=== PATIENT | female | born 1985 | race Caucasian/White ===

== ENCOUNTER → 2016-07-21 | Outpatient (CLI) | payer OTHER ==
[~2016-07-21] MED LIST: ACET-1256 PO; CLX/20 PO; LMC25 PO
== END ==
LOC: C.LAB 15:36
DX: Z02.83 Encounter for blood-alcohol and blood-drug test (principal)

== ENCOUNTER 2017-07-01 20:34 | Inpatient (IN) | payer OTHER ==
[~2017-07-01] VITALS: Ht 160 cm; Wt 51.7 kg
[2017-07-01] MEDS ORDERED: SODIUM CHLORIDE 0.9% 1000ML 1,000 ML IV ONE (21:30)
[2017-07-01] MEDS ORDERED: SODIUM CHLORIDE 0.9% 1000ML 1,000 ML IV STA (21:30)
[2017-07-01] MEDS ORDERED: ONDANSETRON INJ 2 MG/ML 2 ML VIAL IV STA ×2 (21:30→22:40)
[2017-07-01 21:50] LABS: BASO % 0.5 %; BASO ABS # 0.06 K/uL (0-0.2); EOS % 2.6 %; EOS ABS # 0.32 K/uL (0-0.5); HEMATOCRIT 46.3 % (37-47); HEMOGLOBIN 16.3 g/dL (12.0-16.0); IG# 0.04 K/uL (0.00-0.02); LYMPH % 19.2 %; LYMPH ABS # 2.38 K/uL (1.2-3.4); MEAN CELL VOLUME 93.9 fL (80-100); MEAN CORPUSCULAR HEMOGLOBIN 33.1 pg (25-34); MEAN CORPUSCULAR HGB CONC 35.2 g/dl (32-36); MEAN PLATELET VOLUME 10.2 fL (7.4-10.4); MONO % 6.7 %; MONO ABS # 0.83 K/uL (0.11-0.59); NEUT % 70.7 %; NEUT ABS # 8.76 K/uL (1.4-6.5); PLATELET COUNT 191 K/uL (130-400); RED CELL DISTRIBUTION WIDTH CV 13.7 % (11.5-14.5); RED CELL DISTRIBUTION WIDTH SD 47.1 fL (36.4-46.3); WHITE BLOOD COUNT 12.39 K/uL (4.8-10.8)
[2017-07-01 22:08] LABS: ALBUMIN 4.4 gm/dl (3.4-5.0); CALCIUM 9.5 mg/dl (8.5-10.1); CREATININE 0.75 mg/dl (0.60-1.20); POTASSIUM 3.9 mmol/L (3.5-5.1)
[2017-07-01] MEDS ORDERED: OPTIRAY 320 IV PRN (23:45)
--- NOTE | 2017-07-02 00:20 | EMERGENCY ROOM VISIT NOTE ---
History Report prepared by Minnie: Naye Wei Under the Supervision of: Dr. William Camargo M.D. First contact with patient: 21:23 Chief Complaint: NAUSEA Stated Complaint: POSSIBLE UTI, NAUSEA, PAIN, WEAK Nursing Triage Summary: Pt wheeled into triage. Pt c/o nausea and vomiting. Started this morning, on/ off the past couple days. Pt states she hasn't been able to pee well, feels like she may have a uti. History of Present Illness The patient is a 32 year old female who presents to the Emergency Room with complaints of worsening nausea starting a few days ago. The patient's friend states that the patient thinks she has a UTI since this is what she feels like when she has a UTI. She states that the patient has this a few times a year. The patient's friend complains of the patient having back pain, weakness, abdominal pain, chills, not being able to drink, and diarrhea. The patient denies no new medications, stopping any medications, chance of and fevers. She notes that she has a dental abscess that she thinks is getting worse. Source of History: patient, friend Onset: a few days ago Position: other (global) Quality: other (nausea) Timing: worsening Associated Symptoms: + chills, + abdominal pain, + back pain, + diarrhea, + weakness, No fevers Note: The patient complains of not being able to drink and worsening dental abscess. Review of Systems See HPI for pertinent positives & negatives. A total of 10 systems reviewed and were otherwise negative. Past Medical & Surgical Medical Problems: (1) Anxiety (2) Bipolar disorder (3) Depression (4) Odontogenic infection of jaw (5) Tobacco use disorder Surgical Problems: (1) History of bilateral tubal ligation (2) Hx of cholecystectomy (3) S/P section (4) S/P debridement Old medical records were reviewed. Nurse's notes were reviewed and I agree with. Family History FH: cancer GRANDFATHER GREAT AUNT (colon CA) FH: diabetes mellitus FH: gallbladder disease FH: heart disease FH: hypertension FH: kidney disease FH: lung disease FH: seizures Kidney stones Social History Smoking Status: Never Smoker Alcohol Use: occasionally Drug Use: none Housing Status: lives with family Current/Historical Medications No Active Prescriptions or Reported Meds Allergies Coded Allergies: No Known Allergies (Verified , 09/09/15) Physical Exam Vital Signs Date Time Temp Pulse Resp B/P (MAP) Pulse Ox O2 Delivery O2 Flow Rate FiO2 07/02/17 00:58 36.4 07/02/17 00:00 77 16 118/89 98 Room Air 07/01/17 23:21 77 14 114/70 98 Room Air 07/01/17 21:53 74 13 112/77 96 Room Air 07/01/17 20:37 36.3 89 18 124/90 96 Room Air Physical Exam General: Uncomfortable appearing young female complaining of nausea and lower abdominal pain. HEENT: Normal cephalic atraumatic. Pupils are equal round and reactive to light. Extraocular movements are intact. Oropharynx is pink with moist mucous membranes. No swelling of the mouth lips or tongue. Neck: Supple with a midline trachea. No meningeal signs or stiffness, no JVD or bruits. No Stridor. Chest: Clear to auscultation bilaterally. No wheezes or rhonchi. No increased work of breathing. Heart: regular rate and rhythm. Abdomen: Mildly tender in the lower abdomen. Soft, nondistended without rebound guarding or rigidity. Extremities: No cyanosis clubbing or edema. No calf tenderness or assymetry Spine/Back. Non tender to palpation. No CVA tenderness Skin: Good turgor without rashes. Neurologic exam: Cranial nerves two through 12 are intact. Motor and sensation are intact and symmetrical throughout. Medical Decision & Procedures ER Provider Diagnostic Interpretation: Radiology results as stated below per my review and radiologist interpretation: CT ABDOMEN & PELVIS With Contrast: Impression: The appendix measures upper limits normal at 6-7 mm with mild enhancement of its wall. No significant adjacent stranding. Correlate clinically to exclude acute appendicitis. Additional findings: Lower thorax is unremarkable. Mild periportal edema which may be secondary to IV hydration. Gallbladder is surgically absent. Spleen, pancreas and adrenal glands are unremarkable. Uterus and adnexa are unremarkable. Bowel is unremarkable. No acute osseous abnormality. Radiologist: Lazarus Kaur MD Study ready at 00:29 and initial results transmitted at 00:48. Laboratory Results 07/01/17 21:30 Red Blood Count 4.93, Mean Corpuscular Volume 93.9, Mean Corpuscular Hemoglobin 33.1, Mean Corpuscular Hemoglobin Concent 35.2, Mean Platelet Volume 10.2, Neutrophils (%) (Auto) 70.7, Lymphocytes (%) (Auto) 19.2, Monocytes (%) (Auto) 6.7, Eosinophils (%) (Auto) 2.6, Basophils (%) (Auto) 0.5, Neutrophils # (Auto) 8.76, Lymphocytes # (Auto) 2.38, Monocytes # (Auto) 0.83, Eosinophils # (Auto) 0.32, Basophils # (Auto) 0.06 07/01/17 21:30 Test 07/01/17 21:30 07/01/17 23:00 White Blood Count 12.39 K/uL (4.8-10.8) Red Blood Count 4.93 M/uL (4.2-5.4) Hemoglobin 16.3 g/dL (12.0-16.0) Hematocrit 46.3 % (37-47) Mean Corpuscular Volume 93.9 fL (80-100) Mean Corpuscular Hemoglobin 33.1 pg (25-34) Mean Corpuscular Hemoglobin Concent 35.2 g/dl (32-36) Platelet Count 191 K/uL (130-400) Mean Platelet Volume 10.2 fL (7.4-10.4) Neutrophils (%) (Auto) 70.7 % Lymphocytes (%) (Auto) 19.2 % Monocytes (%) (Auto) 6.7 % Eosinophils (%) (Auto) 2.6 % Basophils (%) (Auto) 0.5 % Neutrophils # (Auto) 8.76 K/uL (1.4-6.5) Lymphocytes # (Auto) 2.38 K/uL (1.2-3.4) Monocytes # (Auto) 0.83 K/uL (0.11-0.59) Eosinophils # (Auto) 0.32 K/uL (0-0.5) Basophils # (Auto) 0.06 K/uL (0-0.2) RDW Standard Deviation 47.1 fL (36.4-46.3) RDW Coefficient of Variation 13.7 % (11.5-14.5) Immature Granulocyte % (Auto) 0.3 % Immature Granulocyte # (Auto) 0.04 K/uL (0.00-0.02) Anion Gap 6.0 mmol/L (3-11) Est Creatinine Clear Calc Drug Dose 85.9 ml/min Estimated GFR () 121.4 Estimated GFR (Non- 104.7 BUN/Creatinine Ratio 15.3 (10-20) Calcium Level 9.5 mg/dl (8.5-10.1) Total Bilirubin 0.9 mg/dl (0.2-1) Direct Bilirubin 0.2 mg/dl (0-0.2) Aspartate Amino Transf (AST/SGOT) 15 U/L (15-37) Alanine Aminotransferase (ALT/SGPT) 19 U/L (12-78) Alkaline Phosphatase 58 U/L (45-117) Total Protein 8.0 gm/dl (6.4-8.2) Albumin 4.4 gm/dl (3.4-5.0) Lipase 148 U/L (73-393) Human Chorionic Gonadotropin, Qual NEG (NEG) Urine Color DK YELLOW Urine Appearance CLEAR (CLEAR) Urine pH 6.5 (4.5-7.5) Urine Specific [place] 1.030 (1.000-1.030) Urine Protein NEG (NEG) Urine Glucose (UA) NEG (NEG) Urine Ketones TRACE (NEG) Urine Occult Blood NEG (NEG) Urine Nitrite NEG (NEG) Urine Bilirubin NEG (NEG) Urine Urobilinogen NEG (NEG) Urine Leukocyte Esterase NEG (NEG) Laboratory studies as stated above per my review. Medications Administered Medications (Trade) Dose Ordered Sig/Jani Route Start Time Stop Time Status Last Admin Dose Admin Sodium Chloride 1,000 ml @ 999 mls/hr Q1H1M STAT IV 07/01/17 21:30 07/01/17 22:30 DC 07/01/17 21:49 999 MLS/HR Sodium Chloride 1,000 ml @ 200 mls/hr Q5H ONCE IV 07/01/17 21:30 07/02/17 02:29 07/01/17 23:22 200 MLS/HR Ondansetron HCl (Zofran Inj) 4 mg NOW STAT IV 07/01/17 21:30 07/01/17 21:31 DC 07/01/17 21:49 4 MG Ondansetron HCl (Zofran Inj) 4 mg NOW STAT IV 07/01/17 22:40 07/01/17 22:41 DC 07/01/17 23:22 4 MG Ondansetron HCl (Zofran Inj) 4 mg NOW STAT IV 07/02/17 00:42 07/02/17 00:43 DC 07/02/17 00:56 4 MG ED Course 2123: Past medical records reviewed. The patient was evaluated in room B12B, and a complete history and physical examination were performed. 0: Ordered Zofran Inj 4 mg IV, NSS 1000 ml @ 200 mls/hr IV, NSS 1000 ml @ 999 mls/hr IV. 5: I reevaluated the patient and she is still nauseated. 0: Ordered Zofran Inj 4 mg IV. 2312: I reevaluated the patient and she is still in pain. We are going to do a CT of her abdomen. 0004: I reevaluated the patient and she is still complaining of nausea. 0042: Ordered Zofran Inj 4 mg IV. 0102: I reevaluated the patient and she is still nauseous. She no longer has abdominal pain. 0139: I discussed the patient's case with Dr. Michelle Ornelas. He would like general surgery consulted. 0149: I discussed the patient's case with Dr. Thorne- General Surgeon. He states to admit her to medicine and he will see her in the morning. 0153: Discussed the patient's case with Dr. Michelle Ornelas. The patient will be evaluated for further management. 0159: I reevaluated the patient and updated her on the plan. She is still nauseous. Medical Decision Differential diagnoses include nausea, dehydration, infection, sepsis, medication side effect or withdrawal, electrolyte abnormality, metabolic abnormality. This patient comes in as described above she is complaining of nausea and may have some lower abdominal pain. She is complaining mostly of nausea. IV access established was hydrated with IV normal saline, she was given IV Zofran. she received additional IV Zofran. Urinalysis does not suggest UTI. Her white count is mildly elevated. She has no acute electrolyte or metabolic abnormalities. She denies any headache. she is afebrile here. she has had no chest pain or shortness of breath. She has no meningeal signs or stiffness. She may have some abdominal pain. She feels generally achy. Her white count is mildly elevated although she is afebrile here. She has no acute electrolyte or metabolic abnormalities. Urinalysis does not suggest UTI. She has no new medications denies narcotic use or withdrawal. CAT scan was obtained and shows no acute findings. The appendix is upper limits of normal without any stranding and there is mild enhancement of its wall. Clinically I do not think is likely appendicitis however it is still possible. I do think she needs to be admitted for treatment of her nausea and observation. I did discuss case with Dr. Thorne feels she can be observed and will see her in the morning. Dr. Tsai was consulted and he is going to see her in the ER for observation and further evaluation. Medication Reconcilliation Current Medication List: was personally reviewed by me Blood Pressure Screening Patient's blood pressure: Normal blood pressure Will be further monitored by the hospitalist. Consults Time Called: 013 Consulting Physician: Dr. Michelle Andersen Hospitalist Returned Call: 0139 I discussed the patient's case with Dr. Michelle Ornelas. He would like general surgery consulted. Additional Consults: Time Called: 0141 Consulted Physician: Dr. Thorne- General Surgeon Returned Call: 0149 Additional Comments: I discussed the patient's case with Dr. Thorne- General Surgeon. He states to admit her to medicine and he will see her in the morning Time Called: 0152 Consulted Physician: Dr. Michelle Andersen Hospitalist Returned Call: 0153 Additional Comments: Discussed the patient's case with Dr. Michelle Andersen Hospitalist. The patient will be evaluated for further management. Impression Primary Impression: Nausea Scribe Attestation The scribe's documentation has been prepared under my direction and personally reviewed by me in its entirety. I confirm that the note above accurately reflects all work, treatment, procedures, and medical decision making performed by me. Departure Information Dispostion Being Evaluated By Hospitalist Prescriptions No Active Prescriptions or Reported Meds Referrals No Doctor, Assigned (PCP) Patient Instructions My [facility]
[2017-07-02] MEDS ORDERED: ONDANSETRON INJ 2 MG/ML 2 ML VIAL IV STA (00:42)
[2017-07-02] MEDS ORDERED: ONDANSETRON INJ 2 MG/ML 2 ML VIAL IV PRN (02:30)
[2017-07-02] MEDS ORDERED: PIPERACILL/TAZOBAC IV 4.5 GM in DEXTROSE 5% 100ML 100 ML IV ONE (02:33)
[2017-07-02] MEDS ORDERED: PIPERACILLIN/TAZOBACTAM 4.5 GM/100ML D5W IV STA (02:38)
[2017-07-02] MEDS ORDERED: PIPERACILL/TAZOBAC IV 4.5 GM in DEXTROSE 5% 100ML 100 ML IV SCH (02:45)
[2017-07-02] MEDS ORDERED: PIPERACILL/TAZOBAC CONSULT ACTIVE PRN ×2 (02:45)
--- NOTE | 2017-07-02 03:05 | HISTORY & PHYSICAL EXAMINATION ---
DATE OF ADMISSION: 07/01/2017 PRIMARY CARE PHYSICIAN: Dr. Cardoso. CHIEF COMPLAINT: Abdominal discomfort, nausea, vomiting since yesterday. HISTORY OF PRESENT COMPLAINT: She is a 32-year-old female with significant past medical history of bipolar affective disorder and generalized anxiety disorder and tobacco use disorder, apparently has been complaining of generalized weakness associated with nausea and recurrent vomiting and also diarrhea since yesterday. She complains to have chills and some abdominal discomfort but no chest pain, shortness of breath, palpitation, and does not have any problem with urine and does not have any headache, any blurred vision, any pain in the joints or any other symptoms. In the Emergency Room, she was still having pain and her labs showed white count of 12,000 and CAT scan of the abdomen did show some swelling involving the appendix. The surgery on-call was consulted by the ER physician and was advised to admit under medical service and she seems to be not a candidate for surgery tonight, so they will see her tomorrow morning. PAST MEDICAL HISTORY: Significant for tobacco use disorder, bipolar affective disorder, generalized anxiety disorder. PAST SURGICAL HISTORY: delivery and cholecystectomy. FAMILY HISTORY: Sister has heart disorder and maternal great aunt had colon cancer. SOCIAL HISTORY: She is . She is accompanied by her girlfriend. She smokes about 1.5 packs per day. She tried to quit in 2006. No alcohol use. She has been reasonably active. REVIEW OF SYSTEMS: Total systemic review unremarkable except those mentioned in history of present complaint. ALLERGIES: NKDA. MEDICATIONS: She has not been taking any medications as an outpatient. PHYSICAL EXAMINATION: GENERAL: On examination in the Emergency Room, she looked pale. She was in pain and nauseous, no apparent distress other than minimal pain. VITAL SIGNS: Temperature 36.3, pulse of 77, blood pressure 118/89, saturation 98% on room air. HEENT: Unremarkable. NECK: Supple, no JVD, no bruit. CHEST: Clear to auscultate bilaterally. HEART: S1, S2 regular. ABDOMEN: Soft but tender all over, mostly in the right lower quadrant, difficult palpation because of noncooperation. Could not elicit any rebound tenderness and/or guarding. Bowel sounds present. EXTREMITIES: Negative. CENTRAL NERVOUS SYSTEM: She is alert, awake, oriented x3. LABORATORY DATA: Noted today white count 12.39, H&H 16.3/46.3, platelet was 191, polys of 8.76. Sodium 139, potassium 3.9, chloride 106, carbon dioxide 28, BUN 11, creatinine 0.75, random glucose 107. LFTs unremarkable. Lipase 148. HCG negative. UA examination unremarkable. CT of the abdomen reported as some swelling around the appendix. IMPRESSION AND PLAN: 1. Ongoing nausea, vomiting, diarrhea. The patient was admitted to medical floor. She will be given adequate IV fluid. She may have acute gastroenteritis. She will be given symptomatic medications and stool will be sent for C. diff colitis and also culture. 2. Abdominal pain with nausea, vomiting, diarrhea. CT scan shows some swelling involving the appendix area. Surgery was consulted, they will evaluate the patient tomorrow morning. We will start Zosyn to cover possible infection at this time. 3. Bipolar disorder, has not been taking any medications. 4. Generalized anxiety disorder, not been taking any medications. 5. Deep venous thrombosis prophylaxis with Lovenox. 6. Code status. Full code. In my clinical assessment, the beneficiary meets criteria as per CMS for 2-midnight stay in the hospital.
[2017-07-02 03:35] VITALS: BP 113/73; PULSE 97; TEMP 36.6; O2SAT 96; Ht 160 cm; Wt 51.7 kg
[2017-07-02] MEDS ORDERED: IV FLUIDS COMPLETED PRN (04:00)
[2017-07-02] MEDS: SODIUM CHLORIDE 0.9% 1000ML 1,000 ML IV SCH ×2 (04:43→14:12)
[2017-07-02 07:15] VITALS: BP 124/76; PULSE 68; TEMP 36.8; O2SAT 97
[2017-07-02] MEDS: PIPERACILL/TAZOBAC IV 3.375 GM in NSS 100ML IV SCH ×2 (07:33→15:46)
--- NOTE | 2017-07-02 07:41 | DIAGNOSTIC IMAGING REPORT ---
CT ABD/PELVIS IV CONTRAST ONLY CLINICAL HISTORY: Generalized abdominal pain COMPARISON STUDY: 06/01/2010 TECHNIQUE: Following the IV administration of 91 mL of Optiray-320, CT scan of the abdomen and pelvis was performed from the lung bases to the proximal femurs. Images are reviewed in the axial, sagittal, and coronal planes. IV contrast was administered without complication. A dose lowering technique was utilized adhering to the principles of ALARA. CT DOSE: 257.71 mGy.cm FINDINGS: Lower chest: The heart is normal in size and configuration, without pericardial effusion. The lung bases and pleural spaces are clear. Liver: There is mild periportal edema, a nonspecific finding likely secondary to aggressive hydration. Gallbladder: Surgically absent Spleen: Normal in size and attenuation. Pancreas: Unremarkable. Adrenal glands: Unremarkable. Kidneys: There is symmetric renal cortical enhancement. The kidneys are normal in size without hydronephrosis. Bowel: There are no transition zones indicate bowel obstruction. There is no evidence of acute diverticulitis. The appendix appears fluid-filled, and at the upper limits of normal in diameter. Peritoneum: There is no intraperitoneal free air or abdominal ascites. Vasculature: The abdominal aorta is normal in course and caliber. Adenopathy: None. Pelvic viscera: The bladder, and pelvic viscera are unremarkable. Skeletal structures: No destructive osseous lesions are seen. IMPRESSION: 1. Mild periportal edema, likely secondary to IV hydration 2. Surgically absent gallbladder 3. No evidence of bowel obstruction. No evidence of free air. 4. No evidence of acute diverticulitis. 5. Fluid-filled appendix at the upper limits of normal diameter. Assessment limited, given the lack of orally administered contrast. Clinical correlation and follow-up suggested. Electronically signed by: Gerald Ibarra M.D. 07/02/2017 7:39 AM Dictated Date/Time: 07/02/2017 7:34 AM
[2017-07-02] MEDS ORDERED: ENOXAPARIN 40 MG/0.4 ML SYR SQ SCH (09:00)
[2017-07-02 09:55] LABS: HEMATOCRIT 41.1 % (37-47); HEMOGLOBIN 14.2 g/dL (12.0-16.0); MEAN CELL VOLUME 94.3 fL (80-100); MEAN CORPUSCULAR HEMOGLOBIN 32.6 pg (25-34); MEAN CORPUSCULAR HGB CONC 34.5 g/dl (32-36); MEAN PLATELET VOLUME 10.5 fL (7.4-10.4); PLATELET COUNT 172 K/uL (130-400); RED CELL DISTRIBUTION WIDTH CV 13.6 % (11.5-14.5); RED CELL DISTRIBUTION WIDTH SD 47.1 fL (36.4-46.3); WHITE BLOOD COUNT 9.29 K/uL (4.8-10.8)
--- NOTE | 2017-07-02 10:05 | SURGICAL CONSULTATION ---
DATE OF CONSULTATION: 07/02/2017 HISTORY OF PRESENT ILLNESS: I have been asked by Dr. Tsai to see this 32-year-old female who presented to the Emergency Room with a complaint of weakness and malaise. She also had intermittent, crampy, abdominal pain. The intensity waxed and waned. There was no part of her abdomen that predominated. This was a diffuse discomfort. She had intermittent nausea and vomited twice over the last 24-36 hours. There was no hematemesis. She has also had diarrhea, but stated that, that was her usual. There has been no change in her bowel habits. She denies hematochezia and melena. She has not had dysuria or hematuria, but stated that her urine was dark and had a "funny odor" to it. She denies fever. PAST MEDICAL HISTORY: Negative. PAST SURGICAL HISTORY: Laparoscopic cholecystectomy, 2 sections, and I&D of abscess left thigh. MEDICATIONS AT HOME: None. ALLERGIES: None. SOCIAL HISTORY: She smokes about a pack a day and does not drink alcohol. PHYSICAL EXAMINATION: GENERAL: Reveals a thin, but well-nourished female who appears in no acute distress. During my exam, she seemed somewhat malaise and kept her eyes closed during most of the visit. VITAL SIGNS: Blood pressure 124/76, heart rate 68, respirations 16, temperature 36.8, pulse oximetry 97. HEENT: Sclerae are anicteric. Mucous membranes are moist. NECK: Supple, with no adenopathy. BACK: Has no spinal or CVA tenderness. LUNGS: Have end expiratory wheezes and some scattered rhonchi. HEART: Regular. ABDOMEN: Has normoactive bowel sounds, is soft, nondistended with mild diffuse tenderness with no area predominating. There is no significant tenderness in the right lower quadrant. EXTREMITIES: Reveal no edema. LABORATORY DATA: WBC 12.39, H&H is 16.3 and 46.3 with a platelet count of 191,000. Sodium 139, potassium 3.9, chloride 106, CO2 28, BUN 11, creatinine 0.75. INR is 1.0. CT scan of the abdomen and pelvis showed mild periportal edema. She has a surgically absent gallbladder. There was no evidence of bowel obstruction. There was no evidence of acute diverticulitis. She had a fluid-filled appendix at the upper limits of normal diameter. There is no mention of periappendiceal inflammation. ASSESSMENT AND PLAN: This patient has malaise, some diarrhea, although that seems to be chronic. Her white blood cell count is mildly elevated. She had some nausea. Her abdominal exam has diffuse discomfort and her pain is described as crampy. CT findings are noted. At the present time, this does not have the clinical characteristics of acute appendicitis. I would agree with continuing antibiotics and we will continue with further abdominal exams and evaluation. Thank you for allowing me to see this patient and participate in her care.
[2017-07-02 10:25] LABS: ALBUMIN 3.8 gm/dl (3.4-5.0); CALCIUM 8.9 mg/dl (8.5-10.1); CREATININE 0.69 mg/dl (0.60-1.20)
--- NOTE | 2017-07-02 11:42 | Progress Note ---
Progress Note Date of Service Jul 02, 2017. Progress Note Subjective: Patient was seen this AM after general surgeon spoke with patient. Patient reports of having abdominal tenderness of exam with more discomfort on palpation of middle lower abdomen and left lower abdomen. Patient intermittently drowsy but breathing on room air and responds to questions appropriately Physical Exam PHYSICAL EXAMINATION: GENERAL: intermittently drowsy, no acute distress HEENT: Unremarkable. NECK: Supple, no JVD CHEST: Clear to auscultate bilaterally HEART: S1, S2 regular. ABDOMEN: ore discomfort on palpation of middle lower abdomen and left lower abdomen, abdomen soft, bowel sounds present EXTREMITIES: No edema Admission abdominal CT impressions 1. Mild periportal edema, likely secondary to IV hydration 2. Surgically absent gallbladder 3. No evidence of bowel obstruction. No evidence of free air. 4. No evidence of acute diverticulitis. 5. Fluid-filled appendix at the upper limits of normal diameter Assessment and Plan Abdominal pain with nausea, vomiting, diarrhea -General surgery consultation: "This patient has malaise, some diarrhea, although that seems to be chronic. Her white blood cell count is mildly elevated. She had some nausea. Her abdominal exam has diffuse discomfort and her pain is described as crampy. CT findings are noted. At the present time, this does not have the clinical characteristics of acute appendicitis." -continue with antibiotics (currently on Zosyn) -will obtain blood cultures as no blood cultures were sent when antibiotics was stared -C.difficile stool sample and stool culture to be collected if patient persists to have diarrhea -continue antiemetics and pain control medications, IV fluids History of Bipolar disorder, has not been taking any medications. History Generalized anxiety disorder, not been taking any medications. Deep venous thrombosis prophylaxis with Lovenox. Code status. Full code.
[2017-07-02 15:30] VITALS: BP 129/90; PULSE 68; TEMP 36.8; O2SAT 97
[2017-07-02 22:51] VITALS: BP 123/75; PULSE 86; TEMP 36.7; O2SAT 95
[2017-07-03] VITALS (9 sets, daily range): BP systolic 104–125; BP diastolic 62–80; PULSE 75–89; TEMP 36.8–37; O2SAT 96–98
[2017-07-03] MEDS: SODIUM CHLORIDE 0.9% 1000ML 1,000 ML IV SCH ×3 (00:05→23:20)
[2017-07-03] MEDS: PIPERACILL/TAZOBAC IV 3.375 GM in NSS 100ML IV SCH ×4 (00:05→23:45)
[2017-07-03 06:27] LABS: BASO % 0.2 %; BASO ABS # 0.03 K/uL (0-0.2); EOS % 0.9 %; EOS ABS # 0.12 K/uL (0-0.5); HEMOGLOBIN 14.4 g/dL (12.0-16.0); IG# 0.05 K/uL (0.00-0.02); LYMPH % 20.4 %; LYMPH ABS # 2.63 K/uL (1.2-3.4); MEAN CELL VOLUME 95.2 fL (80-100); MEAN CORPUSCULAR HEMOGLOBIN 32.7 pg (25-34); MEAN CORPUSCULAR HGB CONC 34.3 g/dl (32-36); MEAN PLATELET VOLUME 10.9 fL (7.4-10.4); MONO % 8.8 %; MONO ABS # 1.13 K/uL (0.11-0.59); NEUT % 69.3 %; NEUT ABS # 8.93 K/uL (1.4-6.5); PLATELET COUNT 172 K/uL (130-400); RED CELL DISTRIBUTION WIDTH CV 13.5 % (11.5-14.5); RED CELL DISTRIBUTION WIDTH SD 47.3 fL (36.4-46.3); WHITE BLOOD COUNT 12.89 K/uL (4.8-10.8)
[2017-07-03 07:03] LABS: ALBUMIN 3.5 gm/dl (3.4-5.0); CALCIUM 8.4 mg/dl (8.5-10.1); CREATININE 0.72 mg/dl (0.60-1.20); POTASSIUM 3.6 mmol/L (3.5-5.1)
[2017-07-03 07:06] LABS: TOTAL PROTEIN 6.5 gm/dl (6.4-8.2)
[2017-07-03] MEDS ORDERED: POTASSIUM CHLORIDE 20 MEQ TABCR PO ONE (07:30)
[2017-07-03] MEDS: MAGNESIUM SULFATE 1GM / D5W 1 GM in PREMIXED IN D5W 100 ML IV SCH ×2 (08:11→10:30)
[2017-07-03] MEDS: HYDROmorphone INJ 0.5 MG/0.5 ML SYR IV PRN ×2 (08:11→23:37)
--- NOTE | 2017-07-03 08:12 | Surgery Progress Note ---
Surgery Progress Note Date of Service Jul 03, 2017. Subjective Post OP Day: HD # 1 not feeling well today, slightly worse than yesterday, very tired and fatigued, not able to stay awake abdominal pain about the same, worse in the lower abdomen, more so on the right not passing flatus + nausea and belching NO bowel movement since admission no appetite Objective Vital Signs: Date Time Temp Pulse Resp B/P (MAP) Pulse Ox O2 Delivery O2 Flow Rate FiO2 07/03/17 07:04 36.9 82 18 122/74 (90) 96 Room Air 07/03/17 00:00 Room Air 07/02/17 22:51 36.7 86 16 123/75 (91) 95 Room Air 07/02/17 15:30 36.8 68 16 129/90 (103) 97 Room Air 07/02/17 15:30 Room Air General Appearance: WD/WN, no apparent distress Head: normocephalic, atraumatic Neck: trachea midline Respiratory/Chest: no respiratory distress, no accessory muscle use Cardiovascular: regular rate, rhythm, no murmur Abdomen: soft, no organomegaly, no pulsatile mass, + abnormal bowel sounds ( hypoactive bowel sounds), + tenderness (RLQ on mild palpation and RUQ, guarding , mild rebound) Laboratory Results: Results Past 24 Hours Test 07/02/17 09:50 07/03/17 06:12 Range/Units White Blood Count 9.29 12.89 4.8-10.8 K/uL Red Blood Count 4.36 4.41 4.2-5.4 M/uL Hemoglobin 14.2 14.4 12.0-16.0 g/dL Hematocrit 41.1 42.0 37-47 % Mean Corpuscular Volume 94.3 95.2 80-100 fL Mean Corpuscular Hemoglobin 32.6 32.7 25-34 pg Mean Corpuscular Hemoglobin Concent 34.5 34.3 32-36 g/dl RDW Standard Deviation 47.1 47.3 36.4-46.3 fL RDW Coefficient of Variation 13.6 13.5 11.5-14.5 % Platelet Count 172 172 130-400 K/uL Mean Platelet Volume 10.5 10.9 7.4-10.4 fL Sodium Level 140 137 136-145 mmol/L Potassium Level 4.0 3.6 3.5-5.1 mmol/L Chloride Level 107 105 98-107 mmol/L Carbon Dioxide Level 26 26 21-32 mmol/L Anion Gap 7.0 6.0 3-11 mmol/L Blood Urea Nitrogen 9 7 7-18 mg/dl Creatinine 0.69 0.72 0.60-1.20 mg/dl Est Creatinine Clear Calc Drug Dose 94.6 90.7 ml/min Estimated GFR () 132.6 127.5 Estimated GFR (Non- 114.4 110.0 BUN/Creatinine Ratio 13.2 9.4 10-20 Random Glucose 119 92 70-99 mg/dl Calcium Level 8.9 8.4 8.5-10.1 mg/dl Total Bilirubin 1.0 0.9 0.2-1 mg/dl Aspartate Amino Transf (AST/SGOT) 8 11 15-37 U/L Alanine Aminotransferase (ALT/SGPT) 16 16 12-78 U/L Alkaline Phosphatase 51 44 45-117 U/L Total Protein 7.0 6.5 6.4-8.2 gm/dl Albumin 3.8 3.5 3.4-5.0 gm/dl Globulin 3.2 3.0 2.5-4.0 gm/dl Albumin/Globulin Ratio 1.2 1.2 0.9-2 Neutrophils (%) (Auto) 69.3 % Lymphocytes (%) (Auto) 20.4 % Monocytes (%) (Auto) 8.8 % Eosinophils (%) (Auto) 0.9 % Basophils (%) (Auto) 0.2 % Neutrophils # (Auto) 8.93 1.4-6.5 K/uL Lymphocytes # (Auto) 2.63 1.2-3.4 K/uL Monocytes # (Auto) 1.13 0.11-0.59 K/uL Eosinophils # (Auto) 0.12 0-0.5 K/uL Basophils # (Auto) 0.03 0-0.2 K/uL Immature Granulocyte % (Auto) 0.4 % Immature Granulocyte # (Auto) 0.05 0.00-0.02 K/uL Magnesium Level 1.7 1.8-2.4 mg/dl Microbiology Results 07/02/17 Blood Culture, Received Pending 07/02/17 Blood Culture - Preliminary, Resulted Assessment & Plan 32 year-old female with generalized abdominal pain (crampy in nature) with diarrhea, elevated white count, with nausea. CT scan showing fluid filled appendix at upper limits of normal size. No periappendiceal inflammation. Examination today more RLQ tenderness on palpation with positive rebound. Increase in leukocytosis but afebrile. Plan: Change pt to NPO, await eval by Dr. Thorne later this morning Continue IV Antibiotics IV pain medication as needed This patient now has more pain and tenderness on the right side of her abdomen with the lower abdomen predominating over the upper abdomen. Her white blood cell count increased to over 12,000. She has not been febrile. We discussed the removal of her appendix. She wishes to proceed with surgery. I explained her the laparoscopic approach and the possible need to convert to an open procedure. I explained the possible complications of those procedures and answered her questions. She has signed a consent form.
[2017-07-03] MEDS ORDERED: CEFAZOLIN SOD 1 GM VIAL ONE (16:48)
[2017-07-03] MEDS ORDERED: HEPARIN SOD (PORCINE) 1000 UNIT/ML 10 ML VIAL ONE (16:49)
[2017-07-03] MEDS ORDERED: BUPIVACAINE 0.5 % 5 MG/1 ML MPF 30ML VIAL ONE (16:49)
[2017-07-03] MEDS ORDERED: LIDOCAINE HCL 2% 2 ML VIAL (20MG/ML) ONE (17:24)
[2017-07-03] MEDS ORDERED: DEXAMETHASONE SOD INJ 4 MG/ML VIAL ONE (17:24)
[2017-07-03] MEDS ORDERED: PROPOFOL IV EMULSION 10 MG/ML 20 ML VIAL IV ONE (17:24)
[2017-07-03] MEDS ORDERED: FENTANYL CITRATE INJ 50 MCG/1 ML 2 ML VIAL ONE (17:24)
[2017-07-03] MEDS ORDERED: GLYCOPYRROLATE INJ 0.2 MG/ML VIAL ONE ×2 (17:24→18:19)
[2017-07-03] MEDS ORDERED: MIDAZOLAM HCL 1 MG/ML 2ML VIAL ONE (17:24)
[2017-07-03] MEDS ORDERED: ONDANSETRON INJ 2 MG/ML 2 ML VIAL ONE (17:24)
[2017-07-03] MEDS ORDERED: NEOSTIGMINE METHYLSULFATE 5 MG/5 ML SYR ONE (17:24)
[2017-07-03] MEDS ORDERED: FLUMAZENIL 0.1 MG/1 ML 10 ML VIAL IV PRN (17:45)
[2017-07-03] MEDS ORDERED: EpHEDrine SULFATE INJ 50 MG/ML AMP IV PRN (17:45)
[2017-07-03] MEDS ORDERED: FENTANYL CITRATE INJ 50 MCG/1 ML 2 ML VIAL IV PRN (17:45)
[2017-07-03] MEDS ORDERED: NALOXONE HCL 0.4 MG/1 ML VIAL/CARP IV PRN (17:45)
[2017-07-03] MEDS ORDERED: MEPERIDINE HCL 25 MG/ML CARP IV PRN (17:45)
[2017-07-03] MEDS ORDERED: ATROPINE SULFATE 0.1 MG/ML 5ML SYR IV PRN (17:45)
[2017-07-03] MEDS ORDERED: ONDANSETRON INJ 2 MG/ML 2 ML VIAL IV PRN (17:45)
[2017-07-03] MEDS ORDERED: PHENYLEPHRINE 100MCG/ML 5ML SYR IV PRN (17:45)
[2017-07-03] MEDS ORDERED: HYDROmorphone INJ 2 MG/ML SYR/VIAL IV PRN (17:45)
[2017-07-03] MEDS ORDERED: LABETALOL HCL IV 5 MG/ML 20ML IV PRN (17:45)
[2017-07-03] MEDS ORDERED: PHENYLEPHRINE 100MCG/ML 5ML SYR ONE (18:19)
[2017-07-03] MEDS ORDERED: KETOROLAC TROMETHAMINE 30 MG/ML VIAL ONE (18:25)
[2017-07-03] MEDS ORDERED: ROCURONIUM BROMIDE 10 MG/ML 5 ML VIAL IV ONE (18:31)
[2017-07-03] MEDS ORDERED: ALBUTEROL HFA INHALER 8.5 GM INH ONE (18:35)
[2017-07-03] MEDS ORDERED: SODIUM CHLORIDE 0.9% INJ 10 ML VIAL ONE (19:06)
--- NOTE | 2017-07-03 19:31 | OPERATIVE REPORT ---
DATE OF OPERATION: 07/03/2017 PREOPERATIVE DIAGNOSIS: Appendicitis. POSTOPERATIVE DIAGNOSES: Possible appendicitis and right ovarian cyst. SURGEON: Shahriar Thorne MD CREDIT REFERENCE CLERK: Mireya Ramirez PA-C FINDINGS: The appendix was floppy. It did not appear to be inflamed, although it was mildly dilated. There were no adhesions there. The uterus was mildly enlarged. The right ovary had a moderate-sized ovarian cyst. The left ovary appeared normal. There was no inflammation over the fallopian tubes. The cecum at the base of the appendix was normal. TECHNIQUE: The patient was given a general anesthetic and the area was prepped and draped in usual sterile fashion. Transverse incision was made through the scar below the umbilicus, carried down through the subcutaneous tissue to the fascia, which was grasped with 2 Kat clamps and incised between. The peritoneum was identified, incised, and the introducer was placed bluntly. The abdomen was then insufflated to a pressure of 15 mmHg with carbon dioxide. The lower midline introducer was placed under direct vision through small skin incision. Exploration was undertaken with findings as above. The left lower quadrant introducer was placed under direct vision. Traction was placed anteriorly on the cecum. There were some lateral attachments to the abdominal wall that were flimsy. They were taken down using blunt and cautery dissection, where appropriate. That allowed me to elevate the appendix completely. A plane was established between the base of the appendix and the mesoappendix. That allowed me also to confirm the junction between the base of the appendix and the cecum. The mesoappendix was divided using the Endo-GIORGIO stapler. That further allowed me to confirm the base of the appendix and the appendix was then amputated off the cecum using the Endo-GIORGIO. It was placed into an Endobag and brought out through the left lower quadrant introducer site. That introducer was replaced. The right lower quadrant was irrigated and the irrigation was removed. The staple lines were inspected and there was no bleeding. Any irrigation that entered the right upper quadrant and the pelvis was removed. The gas was allowed to escape and the introducers were removed. The fascia of the umbilical and left lower quadrant introducer sites was closed with interrupted 0 Vicryl and skin of all the incisions was closed with 4-0 Monocryl in either an interrupted or running subcuticular fashion. The skin was anesthetized with 0.5% Marcaine. The skin was cleansed, dried, benzoin placed. Steri-Strips applied. The estimated blood loss was 5 mL. Sponge, needle, and instrument counts were correct prior to closure. The patient tolerated the surgical procedure without complication and was transferred to recovery. I attest to the content of the Intraoperative Record and any orders documented therein. Any exception s are noted below.
--- NOTE | 2017-07-03 19:52 | Anesthesiology Progress Note ---
Anesthesia Post Op Note Date & Time Jul 03, 2017 at 19:52 Vital Signs Pain Intensity: 1 Vital Signs Past 12 Hours Date Time Temp Pulse Resp B/P (MAP) Pulse Ox O2 Delivery O2 Flow Rate FiO2 07/03/17 19:38 37.2 74 16 113/44 (17) 100 Nasal Cannula 2 07/03/17 19:31 79 18 99 07/03/17 19:31 79 18 07/03/17 19:30 123/80 07/03/17 19:26 87 9 97 07/03/17 19:26 36.9 104 12 122/81 (99) 100 Oxymask 10 07/03/17 19:26 85 9 07/03/17 19:25 128/83 07/03/17 19:21 98 21 100 07/03/17 19:21 97 21 07/03/17 19:20 124/96 07/03/17 19:16 69 21 100 07/03/17 19:16 69 21 07/03/17 19:15 126/82 07/03/17 19:11 90 14 07/03/17 19:11 89 14 122/81 100 07/03/17 15:03 37.0 89 16 116/80 (92) 98 Room Air Notes Mental Status: alert / awake / arousable, participated in evaluation Pt Amnestic to Procedure: Yes Nausea / Vomiting: adequately controlled Pain: adequately controlled Airway Patency, RR, SpO2: stable & adequate BP & HR: stable & adequate Hydration State: stable & adequate Anesthetic Complications: no major complications apparent
[2017-07-03] MEDS: METRONIDAZOLE / NSS 500 MG in PREMIXED NSS 100 ML IV SCH (20:54)
[2017-07-03] MEDS ORDERED: NURSING VERBAL MED ORDER ONE (21:30)
--- NOTE | 2017-07-03 21:59 | Progress Note ---
Progress Note Date of Service Jul 03, 2017. Progress Note Subjective: Patient was seen this after appendectomy. Tolerating pain well. Denies shortness of breath Physical Exam PHYSICAL EXAMINATION: GENERAL: no acute distress HEENT: Unremarkable. NECK: Supple, no JVD CHEST: Clear to auscultate bilaterally HEART: S1, S2 regular. ABDOMEN: dressings over laparoscopic incisions EXTREMITIES: No edema Admission abdominal CT impressions 1. Mild periportal edema, likely secondary to IV hydration 2. Surgically absent gallbladder 3. No evidence of bowel obstruction. No evidence of free air. 4. No evidence of acute diverticulitis. 5. Fluid-filled appendix at the upper limits of normal diameter partial Surgery report of the appendectomy on 07/03/17 FINDINGS: The appendix was floppy. It did not appear to be inflamed, although it was mildly dilated. There were no adhesions there. The uterus was mildly enlarged. The right ovary had a moderate-sized ovarian cyst. The left ovary appeared normal. There was no inflammation over the fallopian tubes. The cecum at the base of the appendix was normal Assessment and Plan Abdominal pain with nausea, vomiting, diarrhea -s/p appendectomy on 07/03/17 for appendicitis -found to have right ovarian cyst -continue with Zosyn for possible intraabdominal source of infection -f/u pathology of surgical specimen -urine culture returns as gardnerella-like bacilli, will add IV metronidazole and vaginal swab for specimens in case there is vaginalis or vaginosis -ID consult requested for 07/04/17 on further antibiotic recommendations -continue antiemetics and pain control medications, IV fluids History of Bipolar disorder, has not been taking any medications at home -mood is stable History Generalized anxiety disorder, not been taking any medications -mood is stable Deep venous thrombosis prophylaxis with Lovenox. Code status. Full code.
[2017-07-04 03:13] VITALS: BP 112/73; PULSE 83; TEMP 36.8; O2SAT 95
[2017-07-04] MEDS: HYDROmorphone INJ 0.5 MG/0.5 ML SYR IV PRN (04:03)
[2017-07-04] MEDS: METRONIDAZOLE / NSS 500 MG in PREMIXED NSS 100 ML IV SCH (05:31)
[2017-07-04] MEDS ORDERED: NURSING VERBAL MED ORDER ONE (07:00)
[2017-07-04 07:13] LABS: BASO % 0.2 %; BASO ABS # 0.02 K/uL (0-0.2); EOS % 0.1 %; EOS ABS # 0.01 K/uL (0-0.5); HEMATOCRIT 38.8 % (37-47); HEMOGLOBIN 13.5 g/dL (12.0-16.0); IG# 0.05 K/uL (0.00-0.02); LYMPH % 17.7 %; LYMPH ABS # 2.18 K/uL (1.2-3.4); MEAN CELL VOLUME 94.4 fL (80-100); MEAN CORPUSCULAR HEMOGLOBIN 32.8 pg (25-34); MEAN CORPUSCULAR HGB CONC 34.8 g/dl (32-36); MEAN PLATELET VOLUME 10.9 fL (7.4-10.4); MONO % 11.3 %; MONO ABS # 1.39 K/uL (0.11-0.59); NEUT % 70.3 %; NEUT ABS # 8.69 K/uL (1.4-6.5); PLATELET COUNT 152 K/uL (130-400); RED CELL DISTRIBUTION WIDTH CV 13.3 % (11.5-14.5); RED CELL DISTRIBUTION WIDTH SD 46.5 fL (36.4-46.3); WHITE BLOOD COUNT 12.34 K/uL (4.8-10.8)
[2017-07-04 07:14] VITALS: BP 109/70; PULSE 64; TEMP 36.7; O2SAT 96
[2017-07-04] MEDS: SODIUM CHLORIDE 0.9% 1000ML 1,000 ML IV SCH (07:14)
[2017-07-04] MEDS: OXYCODONE/ACETAMINOPHEN 5-325 TAB PO PRN ×2 (07:15→11:34)
--- NOTE | 2017-07-04 07:16 | Surgery Progress Note ---
Surgery Progress Note Date of Service Jul 04, 2017. Subjective Post OP Day: 1 + pain controlled, No nausea, No vomiting Abdomen "sore:" Objective Vital Signs: Date Time Temp Pulse Resp B/P (MAP) Pulse Ox O2 Delivery O2 Flow Rate FiO2 07/04/17 03:13 36.8 83 14 112/73 (86) 95 Room Air 07/03/17 23:30 Room Air 07/03/17 23:20 36.8 79 14 125/74 (91) 97 Room Air 07/03/17 22:10 36.8 84 16 104/62 (76) 96 Room Air 07/03/17 21:19 36.9 75 16 116/76 (89) 98 Room Air 07/03/17 20:50 36.8 75 16 105/69 (81) 98 Room Air 07/03/17 20:45 97 Room Air 07/03/17 20:26 97 Room Air 07/03/17 20:25 36.8 75 15 112/74 (87) 97 Room Air 07/03/17 20:10 117/79 07/03/17 20:10 117/79 07/03/17 20:07 77 29 07/03/17 20:07 77 29 98 07/03/17 20:07 77 29 07/03/17 20:07 77 29 98 07/03/17 20:06 112/73 07/03/17 20:06 112/73 07/03/17 20:02 70 14 100 07/03/17 20:02 70 14 100 07/03/17 20:02 70 14 07/03/17 20:02 70 14 07/03/17 20:00 117/74 07/03/17 20:00 117/74 07/03/17 19:57 74 12 99 07/03/17 19:57 79 12 07/03/17 19:57 74 12 99 07/03/17 19:57 79 12 07/03/17 19:56 107/39 07/03/17 19:56 107/39 07/03/17 19:52 57 10 07/03/17 19:52 57 10 07/03/17 19:52 57 10 98 07/03/17 19:52 57 10 98 07/03/17 19:51 127/40 07/03/17 19:47 90 22 07/03/17 19:47 81 22 95 07/03/17 19:45 119/88 07/03/17 19:42 69 12 07/03/17 19:42 74 12 113/44 91 07/03/17 19:38 37.2 74 16 113/44 (17) 100 Nasal Cannula 2 07/03/17 19:37 58 12 100 07/03/17 19:37 60 12 07/03/17 19:35 125/84 07/03/17 19:32 80 13 07/03/17 19:32 78 13 99 07/03/17 19:31 79 18 99 07/03/17 19:31 79 18 07/03/17 19:30 123/80 07/03/17 19:26 87 9 97 07/03/17 19:26 36.9 104 12 122/81 (99) 100 Oxymask 10 07/03/17 19:26 85 9 07/03/17 19:25 128/83 07/03/17 19:21 98 21 100 07/03/17 19:21 97 21 07/03/17 19:20 124/96 07/03/17 19:16 69 21 100 07/03/17 19:16 69 21 07/03/17 19:15 126/82 07/03/17 19:11 90 14 07/03/17 19:11 89 14 122/81 100 07/03/17 15:03 37.0 89 16 116/80 (92) 98 Room Air 07/03/17 07:45 Room Air Abdomen: normal bowel sounds, non distended, soft Incision(s): clean, dry, intact, no erythema, no drainage Laboratory Results: Results Past 24 Hours Test 07/04/17 06:58 Range/Units White Blood Count 12.34 4.8-10.8 K/uL Red Blood Count 4.11 4.2-5.4 M/uL Hemoglobin 13.5 12.0-16.0 g/dL Hematocrit 38.8 37-47 % Mean Corpuscular Volume 94.4 80-100 fL Mean Corpuscular Hemoglobin 32.8 25-34 pg Mean Corpuscular Hemoglobin Concent 34.8 32-36 g/dl Platelet Count 152 130-400 K/uL Mean Platelet Volume 10.9 7.4-10.4 fL Neutrophils (%) (Auto) 70.3 % Lymphocytes (%) (Auto) 17.7 % Monocytes (%) (Auto) 11.3 % Eosinophils (%) (Auto) 0.1 % Basophils (%) (Auto) 0.2 % Neutrophils # (Auto) 8.69 1.4-6.5 K/uL Lymphocytes # (Auto) 2.18 1.2-3.4 K/uL Monocytes # (Auto) 1.39 0.11-0.59 K/uL Eosinophils # (Auto) 0.01 0-0.5 K/uL Basophils # (Auto) 0.02 0-0.2 K/uL RDW Standard Deviation 46.5 36.4-46.3 fL RDW Coefficient of Variation 13.3 11.5-14.5 % Immature Granulocyte % (Auto) 0.4 % Immature Granulocyte # (Auto) 0.05 0.00-0.02 K/uL Assessment & Plan Stable post op Doing well Can D/C to home from surgical standpoint Instructions discussed Follow up with me in 2 weeks has righ tovarian cyst, should contact RECREATION PROGRAMMER after discharge, discussed that with her
[2017-07-04 07:43] LABS: ALBUMIN 3.5 gm/dl (3.4-5.0); CALCIUM 8.3 mg/dl (8.5-10.1); CREATININE 0.73 mg/dl (0.60-1.20); POTASSIUM 3.6 mmol/L (3.5-5.1)
[2017-07-04 07:46] LABS: TOTAL PROTEIN 6.4 gm/dl (6.4-8.2)
[2017-07-04] MEDS: PIPERACILL/TAZOBAC IV 3.375 GM in NSS 100ML IV SCH (08:10)
--- NOTE | 2017-07-04 08:11 | Anesthesiology Progress Note ---
Anesthesia Post Op Note Date & Time Jul 04, 2017 at 08:10 Vital Signs Vital Signs Past 12 Hours Date Time Temp Pulse Resp B/P (MAP) Pulse Ox O2 Delivery O2 Flow Rate FiO2 07/04/17 07:14 36.7 64 16 109/70 (83) 96 Room Air 07/04/17 03:13 36.8 83 14 112/73 (86) 95 Room Air 07/03/17 23:30 Room Air 07/03/17 23:20 36.8 79 14 125/74 (91) 97 Room Air 07/03/17 22:10 36.8 84 16 104/62 (76) 96 Room Air 07/03/17 21:19 36.9 75 16 116/76 (89) 98 Room Air 07/03/17 20:50 36.8 75 16 105/69 (81) 98 Room Air 07/03/17 20:45 97 Room Air 07/03/17 20:26 97 Room Air 07/03/17 20:25 36.8 75 15 112/74 (87) 97 Room Air Notes Mental Status: alert / awake / arousable, participated in evaluation Pt Amnestic to Procedure: Yes Nausea / Vomiting: adequately controlled Pain: adequately controlled Airway Patency, RR, SpO2: stable & adequate BP & HR: stable & adequate Hydration State: stable & adequate Anesthetic Complications: no major complications apparent
--- NOTE | 2017-07-04 09:55 | Medical Consult ---
Consultation Date of Consultation: Jul 04, 2017. Attending Physician: Carter Salter M.D. Reason for Consultation: Postop antibiotics History of Present Illness 32-year-old female with history of bipolar disorder, otherwise in good health, presented emergency room with several days of nausea vomiting associated with crampy lower quadrant abdominal pain. Had fatigue and malaise, some chills but no fever. Was found to have possible appendicitis on CT scanning, and underwent laparotomy with appendectomy with finding of noninfected appendix. Patient also noted to have right ovarian cyst. Continues to feel lightheaded in fatigue, no fever. All cultures have been unremarkable. No evidence of urinary tract infection. Right lower quadrant pain currently 2/10 in intensity. Past Medical/Surgical History Medical Problems: (1) Abdominal pain Status: Acute (2) Dehydration Status: Acute (3) Dental abscess Status: Acute (4) Facial cellulitis Status: Acute (5) Nausea Status: Acute (6) UTI (urinary tract infection) Status: Acute (7) Vomiting Status: Acute Family History FH: cancer GRANDFATHER GREAT AUNT (colon CA) FH: diabetes mellitus FH: gallbladder disease FH: heart disease FH: hypertension FH: kidney disease FH: lung disease FH: seizures Kidney stones Social History Smoking Status: Current Every Day Smoker Drug Use: none Housing Status: lives with family Allergies Coded Allergies: No Known Allergies (Verified , 09/09/15) Current Inpatient Medications Current Inpatient Medications Medications (Trade) Dose Ordered Sig/Jani Route Start Time Stop Time Status Last Admin Dose Admin Ioversol (Optiray 320) 100 ml UD PRN IV 07/01/17 23:45 07/05/17 23:44 Ondansetron HCl (Zofran Inj) 4 mg Q6H PRN IV 07/02/17 02:30 08/01/17 02:29 07/03/17 08:18 4 MG Sodium Chloride 1,000 ml @ 100 mls/hr Q10H IV 07/02/17 04:30 08/01/17 04:29 07/04/17 07:14 100 MLS/HR Miscellaneous Information (Consult) 1 ea UD PRN N/A 07/02/17 02:45 08/01/17 02:44 Hydromorphone HCl (Dilaudid Inj) 0.5 mg Q4H PRN IV 07/02/17 02:45 07/16/17 02:44 07/04/17 04:03 0.5 MG Miscellaneous (Iv Fluids Completed) 1 ea PRN PRN N/A 07/02/17 04:00 07/02/18 03:59 Piperacillin Sod/ Tazobactam Sod 3.375 gm/Sodium Chloride 115 ml @ 28.75 mls/ hr Q8H IV 07/02/17 08:00 07/12/17 07:59 07/04/17 08:10 28.75 MLS/HR Metronidazole 500 mg/Prmx 100 ml @ 100 mls/hr Q8H IV 07/03/17 18:00 07/13/17 17:59 07/04/17 05:31 100 MLS/HR Oxycodone/ Acetaminophen (Percocet 5-325mg Tab) 1 tab Q4H PRN PO 07/04/17 07:00 07/18/17 06:59 07/04/17 07:15 1 TAB Review of Systems All systems were reviewed and are negative except as HPI Physical Exam Date Time Temp Pulse Resp B/P (MAP) Pulse Ox O2 Delivery O2 Flow Rate FiO2 07/04/17 07:30 Room Air 07/04/17 07:14 36.7 64 16 109/70 (83) 96 Room Air 07/04/17 03:13 36.8 83 14 112/73 (86) 95 Room Air 07/03/17 23:30 Room Air 07/03/17 23:20 36.8 79 14 125/74 (91) 97 Room Air 07/03/17 22:10 36.8 84 16 104/62 (76) 96 Room Air 07/03/17 21:19 36.9 75 16 116/76 (89) 98 Room Air 07/03/17 20:50 36.8 75 16 105/69 (81) 98 Room Air 07/03/17 20:45 97 Room Air 07/03/17 20:26 97 Room Air 07/03/17 20:25 36.8 75 15 112/74 (87) 97 Room Air 07/03/17 20:10 117/79 07/03/17 20:10 117/79 07/03/17 20:07 77 29 07/03/17 20:07 77 29 98 07/03/17 20:07 77 29 07/03/17 20:07 77 29 98 07/03/17 20:06 112/73 07/03/17 20:06 112/73 07/03/17 20:02 70 14 100 07/03/17 20:02 70 14 100 07/03/17 20:02 70 14 07/03/17 20:02 70 14 07/03/17 20:00 117/74 07/03/17 20:00 117/74 07/03/17 19:57 74 12 99 07/03/17 19:57 79 12 07/03/17 19:57 74 12 99 07/03/17 19:57 79 12 07/03/17 19:56 107/39 07/03/17 19:56 107/39 07/03/17 19:52 57 10 07/03/17 19:52 57 10 07/03/17 19:52 57 10 98 07/03/17 19:52 57 10 98 07/03/17 19:51 127/40 07/03/17 19:47 90 22 07/03/17 19:47 81 22 95 07/03/17 19:45 119/88 07/03/17 19:42 69 12 07/03/17 19:42 74 12 113/44 91 07/03/17 19:38 37.2 74 16 113/44 (17) 100 Nasal Cannula 2 07/03/17 19:37 58 12 100 07/03/17 19:37 60 12 07/03/17 19:35 125/84 07/03/17 19:32 80 13 07/03/17 19:32 78 13 99 07/03/17 19:31 79 18 99 07/03/17 19:31 79 18 07/03/17 19:30 123/80 07/03/17 19:26 87 9 97 07/03/17 19:26 36.9 104 12 122/81 (99) 100 Oxymask 10 07/03/17 19:26 85 9 07/03/17 19:25 128/83 07/03/17 19:21 98 21 100 07/03/17 19:21 97 21 07/03/17 19:20 124/96 07/03/17 19:16 69 21 100 07/03/17 19:16 69 21 07/03/17 19:15 126/82 07/03/17 19:11 90 14 07/03/17 19:11 89 14 122/81 100 07/03/17 15:03 37.0 89 16 116/80 (92) 98 Room Air General Appearance: WD/WN, no apparent distress Head: normocephalic, atraumatic Eyes: normal inspection, EOMI, sclerae normal ENT: normal ENT inspection, hearing grossly normal, pharynx normal Neck: supple, no adenopathy, thyroid normal, trachea midline Respiratory/Chest: chest non-tender, lungs clear, normal breath sounds, no respiratory distress Cardiovascular: regular rate, rhythm, no gallop, no murmur Abdomen/GI: normal bowel sounds, soft, no organomegaly, + tenderness (Right lower quadrant) Back: normal inspection, no CVA tenderness Extremities/Musculoskelatal: no calf tenderness, normal capillary refill, non- tender Neurologic/Psych: alert, normal mood/affect, oriented x 3 Skin: normal color, warm/dry, no rash Lymphatic: no adenopathy Laboratory Results RUN DATE: 07/04/17 [facility] PAGE 1 RUN TIME: 656 Specimen Inquiry PATIENT: BRAD VINES LOC: JOHANNA # : [id number] AGE/SX: 32/F ROOM: [facility] REG : 07/02/[address]: Carter Salter M.D. : 1985 BED: 2 DIS : STATUS: ADM IN TLOC: SPEC #: [id number] BETY: 07/02/17 STATUS: RES REQ #: [id number] RECD: 07/02/17-1233 [facility] DR: Jos Patterson M.D. SOURCE: BLOOD ENTR: 07/02/17-1150 [facility] DR: Shahriar Thorne M.D. [facility]: Jorge Tsai M.D. No Doctor, Assigned ORDERED: BLOOD CULTURE Procedure Result Verified Site BLD CULT Preliminary 07/04/17-656 NO GROWTH TO DATE. Last 24 Hours Test 07/04/17 06:58 White Blood Count 12.34 K/uL Red Blood Count 4.11 M/uL Hemoglobin 13.5 g/dL Hematocrit 38.8 % Mean Corpuscular Volume 94.4 fL Mean Corpuscular Hemoglobin 32.8 pg Mean Corpuscular Hemoglobin Concent 34.8 g/dl Platelet Count 152 K/uL Mean Platelet Volume 10.9 fL Neutrophils (%) (Auto) 70.3 % Lymphocytes (%) (Auto) 17.7 % Monocytes (%) (Auto) 11.3 % Eosinophils (%) (Auto) 0.1 % Basophils (%) (Auto) 0.2 % Neutrophils # (Auto) 8.69 K/uL Lymphocytes # (Auto) 2.18 K/uL Monocytes # (Auto) 1.39 K/uL Eosinophils # (Auto) 0.01 K/uL Basophils # (Auto) 0.02 K/uL RDW Standard Deviation 46.5 fL RDW Coefficient of Variation 13.3 % Immature Granulocyte % (Auto) 0.4 % Immature Granulocyte # (Auto) 0.05 K/uL Sodium Level 140 mmol/L Potassium Level 3.6 mmol/L Chloride Level 108 mmol/L Carbon Dioxide Level 25 mmol/L Anion Gap 7.0 mmol/L Blood Urea Nitrogen 10 mg/dl Creatinine 0.73 mg/dl Est Creatinine Clear Calc Drug Dose 89.5 ml/min Estimated GFR () 125.4 Estimated GFR (Non- 108.2 BUN/Creatinine Ratio 14.1 Random Glucose 90 mg/dl Calcium Level 8.3 mg/dl Total Bilirubin 0.8 mg/dl Aspartate Amino Transf (AST/SGOT) 19 U/L Alanine Aminotransferase (ALT/SGPT) 23 U/L Alkaline Phosphatase 41 U/L Total Protein 6.4 gm/dl Albumin 3.5 gm/dl Globulin 2.9 gm/dl Albumin/Globulin Ratio 1.2 Patient Name: BRAD VINES Unit Number: [id number] Dictated: 07/02/17733 Transcribed: 07/02/17733 ARG Printed Date/Time: [~ rep prt dt]/[~ rep prt tm] [~ rep ct labl] - [~ rep ct ivnm] [facility] [place] [address] Dictated: 07/02/17733 Transcribed: 07/02/17733 ARG Printed Date/Time: [~ rep prt dt]/[~ rep prt tm] [~ rep ct labl] - [~ rep ct ivnm] [~ rep ct add3]] CT ABD/PELVIS IV CONTRAST ONLY CLINICAL HISTORY: Generalized abdominal pain COMPARISON STUDY: 06/01/2010 TECHNIQUE: Following the IV administration of 91 mL of Optiray-320, CT scan of the abdomen and pelvis was performed from the lung bases to the proximal femurs. Images are reviewed in the axial, sagittal, and coronal planes. IV contrast was administered without complication. A dose lowering technique was utilized adhering to the principles of ALARA. CT DOSE: 257.71 mGy.cm FINDINGS: Lower chest: The heart is normal in size and configuration, without pericardial effusion. The lung bases and pleural spaces are clear. Liver: There is mild periportal edema, a nonspecific finding likely secondary to aggressive hydration. Gallbladder: Surgically absent Spleen: Normal in size and attenuation. Pancreas: Unremarkable. Adrenal glands: Unremarkable. Kidneys: There is symmetric renal cortical enhancement. The kidneys are normal in size without hydronephrosis. Bowel: There are no transition zones indicate bowel obstruction. There is no evidence of acute diverticulitis. The appendix appears fluid-filled, and at the upper limits of normal in diameter. Peritoneum: There is no intraperitoneal free air or abdominal ascites. Vasculature: The abdominal aorta is normal in course and caliber. Adenopathy: None. Pelvic viscera: The bladder, and pelvic viscera are unremarkable. Skeletal structures: No destructive osseous lesions are seen. IMPRESSION: 1. Mild periportal edema, likely secondary to IV hydration 2. Surgically absent gallbladder 3. No evidence of bowel obstruction. No evidence of free air. 4. No evidence of acute diverticulitis. 5. Fluid-filled appendix at the upper limits of normal diameter. Assessment limited, given the lack of orally administered contrast. Clinical correlation and follow-up suggested. Electronically signed by: Gerald Ibarra M.D. 07/02/2017 7:39 AM Dictated Date/Time: 07/02/2017 7:34 AM The status of this report is Signed. Draft = Not yet reviewed or approved by Radiologist. Signed = Reviewed and approved by Radiologist. <AttendingPhy>Jos Patterson M.D.</AttendingPhy> <FamilyPhy>No Doctor, Assigned< /FamilyPhy> <PrimaryPhy>No Doctor, Assigned</PrimaryPhy> <UnitNumber>[id number]< /UnitNumber> <VisitNumber>[id number]</VisitNumber> <PatientName>BRAD VINES</PatientName> <DateOfBirth>1985</DateOfBirth> <Location>[facility]</Location > <ServiceDate>07/01/17</ServiceDate> <MNE>ESINDI</MNE> <OrderingPhy>William Camargo M.D.</OrderingPhy> <OrderingPhyMNE>f rep ord dr ortiz</OrderingPhyMNE> < DictatingPhyMNE>f rep dict dr ortiz</DictatingPhyMNE> <CCListMNE>f rep ct dilmae</ CCListMNE> <AdmittingPhyMNE>f pt admit dr ortiz</AdmittingPhyMNE> <AttendingPhyMNE >f pt attend dr ortiz</AttendingPhyMNE> <ConsultingPhyMNE>f pt consult dr ortiz</ConsultingPhyMNE> <FamilyPhyMNE>f pt fam dr ortiz</FamilyPhyMNE> <OtherPhyMNE>f pt other dr ortiz</OtherPhyMNE> < PrimaryPhyMNE>f pt prim care dr ortiz</PrimaryPhyMNE> <ReferringPhyMNE>f pt referring dr ortiz</ReferringPhyMNE> Assessment & Plan Patient with several days of abdominal symptoms, now status post laparotomy without significant appendicitis pain fair. Clear is causing her current symptoms. No obvious evidence of urinary tract process, wonder whether right- sided ovarian cyst may be playing a role. Would recommend transition to oral antibiotics with combination of levofloxacin and metronidazole for 7 days.
--- NOTE | 2017-07-04 11:07 | Consultant Recommendations ---
Curam Developer Recommendations Date of Service Jul 04, 2017. Curam Developer Recommendations May shower this evening. Remove outer dressings. Leave steri strips on incisions for 7 days and then remove, they may fall off on their own that is okay. Walking and light activity is encouraged to prevent blood clots from forming You will be given Prescription for narcotic pain medication. This medication may make you drowsy and can cause constipation. To combat constipation, you may take OTC stool softener (such as Colace), Prune juice, gentle laxative, and drink plenty of water. You may take extra strength Ibuprofen as needed for mild pain. If you are no longer taking Percocet you may take extra strength Tylenol as needed for mild pain. Follow-up in surgical office in 2 weeks, please call office at [phone] to make an appointment You also have an ovarian cyst, follow up with OBGYN is recommended No dietary restrictions No heavy lifting over 20 pounds for 2 weeks No strenuous activity until cleared by surgeon No submerging incisions underwater for 2 weeks (no bathing, swimming, or hot tubs) No driving while taking narcotic pain medication or until you are pain free
[2017-07-04] MEDS ORDERED: OXYC-57 PO (11:09)
--- NOTE | 2017-07-04 11:43 | Progress Note ---
Medicine Progress Note Date & Time of Visit: Jul 04, 2017 at 11:43 . Subjective Doing well postoperatively. No chest pain. No cough or dyspnea. No nausea or vomiting. Still has some right-sided abdominal pain. No dysuria. Postop pain well-controlled. . Objective Last 8 Hrs Date Time Temp Pulse Resp B/P (MAP) Pulse Ox O2 Delivery O2 Flow Rate FiO2 07/04/17 07:30 Room Air 07/04/17 07:14 36.7 64 16 109/70 (83) 96 Room Air Physical Exam: General- no distress Lungs- clear to auscultation; no respiratory distress Cardiovascular- RRR; no JVD; no pretibial edema Abdomen- + bowel sounds, soft, nontender; incisions bandaged Extremities- no cyanosis; no calf tenderness Neuro- alert, oriented Skin- warm & dry . Laboratory Results: Last 24 Hours Test 07/04/17 06:58 White Blood Count 12.34 K/uL Red Blood Count 4.11 M/uL Hemoglobin 13.5 g/dL Hematocrit 38.8 % Mean Corpuscular Volume 94.4 fL Mean Corpuscular Hemoglobin 32.8 pg Mean Corpuscular Hemoglobin Concent 34.8 g/dl Platelet Count 152 K/uL Mean Platelet Volume 10.9 fL Neutrophils (%) (Auto) 70.3 % Lymphocytes (%) (Auto) 17.7 % Monocytes (%) (Auto) 11.3 % Eosinophils (%) (Auto) 0.1 % Basophils (%) (Auto) 0.2 % Neutrophils # (Auto) 8.69 K/uL Lymphocytes # (Auto) 2.18 K/uL Monocytes # (Auto) 1.39 K/uL Eosinophils # (Auto) 0.01 K/uL Basophils # (Auto) 0.02 K/uL RDW Standard Deviation 46.5 fL RDW Coefficient of Variation 13.3 % Immature Granulocyte % (Auto) 0.4 % Immature Granulocyte # (Auto) 0.05 K/uL Sodium Level 140 mmol/L Potassium Level 3.6 mmol/L Chloride Level 108 mmol/L Carbon Dioxide Level 25 mmol/L Anion Gap 7.0 mmol/L Blood Urea Nitrogen 10 mg/dl Creatinine 0.73 mg/dl Est Creatinine Clear Calc Drug Dose 89.5 ml/min Estimated GFR () 125.4 Estimated GFR (Non- 108.2 BUN/Creatinine Ratio 14.1 Random Glucose 90 mg/dl Calcium Level 8.3 mg/dl Total Bilirubin 0.8 mg/dl Aspartate Amino Transf (AST/SGOT) 19 U/L Alanine Aminotransferase (ALT/SGPT) 23 U/L Alkaline Phosphatase 41 U/L Total Protein 6.4 gm/dl Albumin 3.5 gm/dl Globulin 2.9 gm/dl Albumin/Globulin Ratio 1.2 Assessment & Plan ABDOMINAL PAIN Patient presented to ED with nausea, vomiting, abdominal pain. CT of abdomen and pelvis demonstrated a fluid-filled appendix at the upper limits of normal diameter, surgically absent gallbladder, no bowel obstruction, no free air, no evidence of diverticulitis. General Surgery consulted. Exploratory laparoscopy performed on 07/03/[address] Thorne. Appendix appeared to be mildly dilated, but without inflammation. Uterus noted to be mildly enlarged and the right ovary had a moderate-sized ovarian cyst. Appendectomy was performed; pathology pending at the time of discharge. OVARIAN CYST Right ovarian cyst noted for laparoscopy. Outpatient follow-up with gynecology recommended. UTI (present on admission) Urine culture obtained at time of admission demonstrated Gardnerella-like bacilli. ID consulted. 7 day course of levofloxacin and metronidazole recommended. VTE PROPHYLAXIS SCDs ordered. Patient ambulating. DISPOSITION Patient discharged to home. Family Medicine follow-up with Dr. Cardoso. General Surgery follow-up with Dr. Thorne. Outpatient gynecology follow-up recommended regarding right ovarian cyst. . Consultants: General Surgery with Dr. Thorne ID with Dr. Ramos . Procedures: IV medications IV fluids CT abdomen and pelvis Exploratory laparoscopy with appendectomy by Dr. Thorne on 07/03/17 . Current Inpatient Medications: Current Inpatient Medications Medications (Trade) Dose Ordered Sig/Jani Route Start Time Stop Time Status Last Admin Dose Admin Ioversol (Optiray 320) 100 ml UD PRN IV 07/01/17 23:45 07/05/17 23:44 Ondansetron HCl (Zofran Inj) 4 mg Q6H PRN IV 07/02/17 02:30 08/01/17 02:29 07/03/17 08:18 4 MG Sodium Chloride 1,000 ml @ 100 mls/hr Q10H IV 07/02/17 04:30 08/01/17 04:29 07/04/17 07:14 100 MLS/HR Miscellaneous Information (Consult) 1 ea UD PRN N/A 07/02/17 02:45 08/01/17 02:44 Hydromorphone HCl (Dilaudid Inj) 0.5 mg Q4H PRN IV 07/02/17 02:45 07/16/17 02:44 07/04/17 04:03 0.5 MG Miscellaneous (Iv Fluids Completed) 1 ea PRN PRN N/A 07/02/17 04:00 07/02/18 03:59 Piperacillin Sod/ Tazobactam Sod 3.375 gm/Sodium Chloride 115 ml @ 28.75 mls/ hr Q8H IV 07/02/17 08:00 07/12/17 07:59 07/04/17 08:10 28.75 MLS/HR Metronidazole 500 mg/Prmx 100 ml @ 100 mls/hr Q8H IV 07/03/17 18:00 07/13/17 17:59 07/04/17 05:31 100 MLS/HR Oxycodone/ Acetaminophen (Percocet 5-325mg Tab) 1 tab Q4H PRN PO 07/04/17 07:00 07/18/17 06:59 07/04/17 11:34 1 TAB
[2017-07-04] MEDS ORDERED: LVQ500 PO (11:47)
[2017-07-04] MEDS ORDERED: MTR500 PO (11:47)
--- NOTE | 2017-07-04 11:53 | Discharge Instructions ---
Discharge Instructions Date of Service Jul 04, 2017. Admission Reason for Admission: abdominal pain . Discharge Discharge Diagnosis / Problem: abdominal pain Discharge Goals Goal(s): Decrease discomfort Activity Recommendations Activity Limitations: as noted below Exercise/Sports Limitations: until after follow-up appointment . Instructions / Follow-Up Instructions / Follow-Up APPOINTMENTS: FAMILY MEDICINE 07/10/2017 9:00 AM Jose Cardoso MD GENERAL SURGERY Dr. Thorne in 2 weeks. Please call his office for appointment. OTHER INSTRUCTIONS: You may have a bladder infection. Take levofloxacin (Levaquin) and metronidazole (Flagyl) as instructed for 4 days. There is a cyst on your right ovary. This may be causing your abdominal pain. Please discuss follow-up with Dr. Cardoso. Seek medical attention if you have: * temperature above 101 * chest pain or trouble breathing * abdominal pain, nausea, vomiting * diarrhea, dark stools or bloody stools * burning when you urinate or blood in urine * any unanswered questions or concerns Call 911 if symptoms are severe. Call if you have any questions or problems. My cell # is [phone]. You can also reach a [facility] hospitalist on duty at [facility] 24 hours a day by calling [phone]. Please take good care of yourself. Carter Salter . Current Hospital Diet Patient's current hospital diet: Regular Diet Discharge Diet Recommended Diet: Regular Diet Procedures Procedures Performed: Laparoscopic Appendectomy Pending Studies Studies pending at discharge: yes List of pending studies: pathology results from appendectomy Medical Emergencies . Who to Call and When: Medical Emergencies: If at any time you feel your situation is an emergency, please call 911 immediately. . Non-Emergent Contact Non-Emergency issues call your: Primary Care Provider, Hospital Doctor, Surgeon . . "Provider Documentation" section prepared by Carter Salter. . Workers Compensation Administrator Recommendations Workers Compensation Administrator Recommendations: May shower this evening. Remove outer dressings. Leave steri strips on incisions for 7 days and then remove, they may fall off on their own that is okay. Walking and light activity is encouraged to prevent blood clots from forming You will be given Prescription for narcotic pain medication. This medication may make you drowsy and can cause constipation. To combat constipation, you may take OTC stool softener (such as Colace), Prune juice, gentle laxative, and drink plenty of water. You may take extra strength Ibuprofen as needed for mild pain. If you are no longer taking Percocet you may take extra strength Tylenol as needed for mild pain. Follow-up in surgical office in 2 weeks, please call office at [phone] to make an appointment You also have an ovarian cyst, follow up with OBGYN is recommended No dietary restrictions No heavy lifting over 20 pounds for 2 weeks No strenuous activity until cleared by surgeon No submerging incisions underwater for 2 weeks (no bathing, swimming, or hot tubs) No driving while taking narcotic pain medication or until you are pain free [place] Drug Monitoring Program Search Results: patient reviewed within database, no issues identified
[2017-07-04 12:44] VITALS: BP 110/70; PULSE 51; TEMP 36.6; O2SAT 99
[2017-07-04 13:04] VITALS: BP 110/70; PULSE 51; TEMP 36.6; O2SAT 99
--- NOTE | 2017-07-05 09:31 | Discharge Summary ---
Discharge Summary Date of Service Jul 05, 2017. Discharge Summary Admission Date: Jul 02, 2017 at 02:33 Discharge Date: Jul 04, 2017 Discharge Disposition: Home Principal Diagnosis: abdominal pain OTHER ACUTE SECONDARY DIAGNOSES: UTI (present on admission) right ovarian cyst . Secondary Diagnoses/Problems: Chronic and Resolved Medical Problems: (1) Anxiety Status: Chronic (2) Bipolar disorder Status: Chronic (3) Depression Status: Chronic (4) Tobacco use disorder Status: Chronic Surgical Problems: (1) History of bilateral tubal ligation Status: Chronic (2) Hx of cholecystectomy Status: Chronic (3) S/P section Status: Chronic (4) S/P debridement Permanent Comment: left thigh Status: Chronic . Procedures: IV medications IV fluids CT abdomen and pelvis Exploratory laparoscopy with appendectomy by Dr. Thorne on 07/03/17 . Consultations: General Surgery with Dr. Thorne ID with Dr. Ramos . Medication Reconciliation New Medications: Levofloxacin (Levofloxacin) 500 Mg Tab 500 MG PO DAILY, #4 TAB Metronidazole (Metronidazole) 500 Mg Tab 500 MG PO TID, #12 TAB Oxycodone/Acetaminophen 5MG/325MG (Percocet 5MG/325MG) Tab 1-2 TABLETS PO Q4H PRN for Pain, #30 TAB Admission Information HPI (per Admitting provider): She is a 32-year-old female with significant past medical history of bipolar affective disorder and generalized anxiety disorder and tobacco use disorder, apparently has been complaining of generalized weakness associated with nausea and recurrent vomiting and also diarrhea since yesterday. She complains to have chills and some abdominal discomfort but no chest pain, shortness of breath, palpitation, and does not have any problem with urine and does not have any headache, any blurred vision, any pain in the joints or any other symptoms. In the Emergency Room, she was still having pain and her labs showed white count of 12,000 and CAT scan of the abdomen did show some swelling involving the appendix. The surgery on-call was consulted by the ER physician and was advised to admit under medical service and she seems to be not a candidate for surgery tonight, so they will see her tomorrow morning. . Physical Exam (per Admitting): GENERAL: On examination in the Emergency Room, she looked pale. She was in pain and nauseous, no apparent distress other than minimal pain. VITAL SIGNS: Temperature 36.3, pulse of 77, blood pressure 118/89, saturation 98% on room air. HEENT: Unremarkable. NECK: Supple, no JVD, no bruit. CHEST: Clear to auscultate bilaterally. HEART: S1, S2 regular. ABDOMEN: Soft but tender all over, mostly in the right lower quadrant, difficult palpation because of noncooperation. Could not elicit any rebound tenderness and/or guarding. Bowel sounds present. EXTREMITIES: Negative. CENTRAL NERVOUS SYSTEM: She is alert, awake, oriented x3. . Hospital Course ABDOMINAL PAIN Patient presented to ED with nausea, vomiting, abdominal pain. CT of abdomen and pelvis demonstrated a fluid-filled appendix at the upper limits of normal diameter, surgically absent gallbladder, no bowel obstruction, no free air, no evidence of diverticulitis. General Surgery consulted. Exploratory laparoscopy performed on 07/03/[address] Thorne. Appendix appeared to be mildly dilated, but without inflammation. Uterus noted to be mildly enlarged and the right ovary had a moderate-sized ovarian cyst. Appendectomy was performed; pathology pending at the time of discharge. OVARIAN CYST Right ovarian cyst noted for laparoscopy. Outpatient follow-up with gynecology recommended. UTI (present on admission) Urine culture obtained at time of admission demonstrated Gardnerella-like bacilli. ID consulted. 7 day course of levofloxacin and metronidazole recommended. VTE PROPHYLAXIS SCDs ordered. Patient ambulating. DISPOSITION Patient discharged to home. Family Medicine follow-up with Dr. Cardoso. General Surgery follow-up with Dr. Thorne. Outpatient gynecology follow-up recommended regarding right ovarian cyst. . Discharge Instructions Date of Service Jul 04, 2017. Admission Reason for Admission: abdominal pain . Discharge Discharge Diagnosis / Problem: abdominal pain Discharge Goals Goal(s): Decrease discomfort Activity Recommendations Activity Limitations: as noted below Exercise/Sports Limitations: until after follow-up appointment . Instructions / Follow-Up Instructions / Follow-Up APPOINTMENTS: FAMILY MEDICINE 07/10/2017 9:00 AM Jose Cardoso MD GENERAL SURGERY Dr. Thorne in 2 weeks. Please call his office for appointment. OTHER INSTRUCTIONS: You may have a bladder infection. Take levofloxacin (Levaquin) and metronidazole (Flagyl) as instructed for 4 days. There is a cyst on your right ovary. This may be causing your abdominal pain. Please discuss follow-up with Dr. Cardoso. Seek medical attention if you have: * temperature above 101 * chest pain or trouble breathing * abdominal pain, nausea, vomiting * diarrhea, dark stools or bloody stools * burning when you urinate or blood in urine * any unanswered questions or concerns Call 911 if symptoms are severe. Call if you have any questions or problems. My cell # is [phone]. You can also reach a [facility] hospitalist on duty at [facility] 24 hours a day by calling [phone]. Please take good care of yourself. Carter Salter . Current Hospital Diet Patient's current hospital diet: Regular Diet Discharge Diet Recommended Diet: Regular Diet Procedures Procedures Performed: Laparoscopic Appendectomy Pending Studies Studies pending at discharge: yes List of pending studies: pathology results from appendectomy Medical Emergencies . Who to Call and When: Medical Emergencies: If at any time you feel your situation is an emergency, please call 911 immediately. . Non-Emergent Contact Non-Emergency issues call your: Primary Care Provider, Hospital Doctor, Surgeon . . "Provider Documentation" section prepared by Carter Salter. . Green Marketer Recommendations Green Marketer Recommendations: May shower this evening. Remove outer dressings. Leave steri strips on incisions for 7 days and then remove, they may fall off on their own that is okay. Walking and light activity is encouraged to prevent blood clots from forming You will be given Prescription for narcotic pain medication. This medication may make you drowsy and can cause constipation. To combat constipation, you may take OTC stool softener (such as Colace), Prune juice, gentle laxative, and drink plenty of water. You may take extra strength Ibuprofen as needed for mild pain. If you are no longer taking Percocet you may take extra strength Tylenol as needed for mild pain. Follow-up in surgical office in 2 weeks, please call office at [phone] to make an appointment You also have an ovarian cyst, follow up with OBGYN is recommended No dietary restrictions No heavy lifting over 20 pounds for 2 weeks No strenuous activity until cleared by surgeon No submerging incisions underwater for 2 weeks (no bathing, swimming, or hot tubs) No driving while taking narcotic pain medication or until you are pain free [place] Drug Monitoring Program Search Results: patient reviewed within database, no issues identified . Additional Copies To Jose Cardoso M.D.; Lorraine Adams, CHERELLE
--- NOTE | 2017-07-07 06:40 | EDITING REQUIRED CODING QUERY ---
CODING QUERY To promote full compliance with coding requirements relating to patient care, provider participation is requested in all cases of claims adjustor uncertainty. Please assist us with the question(s) below: Coding Question(s): Patient admitted with generalized abd pain. Lap appendendectomy performed- shows dilated appendix, path negative. Please document, if known or suspected the etiology of patient's abdominal pain. Thanks for your help! Pablo Draper [facility] Physician's Response(s): Abdominal pain, possibly due to right ovarian cyst. Principal Diagnosis: "_that condition established after study, to be chiefly responsible for occasioning the admission of the patient to the hospital for care." Co-Existing Principal Diagnosis: "_when two or more diagnoses equally meet the criteria for principal diagnosis as determined by the circumstances of admission, diagnostic work up, and/or therapy provided, and the Alphabetic Index, Tabular List, or another coding guideline does not provide sequencing direction, any one of the diagnoses may be sequenced first." "When the physician has documented what appears to be a current diagnosis in the body of the record, but has not included the diagnosis in the final diagnostic statement, the physician should be asked whether the diagnosis should be added." (Source [facility]oding [facility] 2 QTR90. p3-4)
== END 2017-07-04 13:19 | disposition home or self-care (01) | DRG 749 ==
LOC: C.EDB 20:35 → OBSVTOIN 07-02 02:33 → C.MSN 07-02 02:33 → INTOOBSV 07-02 02:33 → ENRESERV 07-02 03:07
PROVIDERS: ADMIT Internal Medicine; ATTEND Hospitalist
PROC: 0DTJ4ZZ Resection of Appendix, Percutaneous Endoscopic Approach (ICD-10-PCS; principal; 2017-07-03 13:00)
DX: N83.201 Unspecified ovarian cyst, right side (principal); N39.0 Urinary tract infection, site not specified; F31.9 Bipolar disorder, unspecified; F17.210 Nicotine dependence, cigarettes, uncomplicated; F41.1 Generalized anxiety disorder; Z83.3 Family history of diabetes mellitus; Z82.49 Family history of ischemic heart disease and other diseases of the circulatory system